=== PATIENT | male | born 1990 | race Hispanic/Latino ===

== ENCOUNTER 2018-05-27 21:08 | Emergency (ER) | payer OTHER ==
[2018-05-27 22:00] LABS: RAPID GROUP A STREP NEGATIVE (NEGATIVE)
== END 2018-05-27 22:59 | disposition home or self-care (01) ==
LOC: EDH 21:08
DX: J11.1 Influenza due to unidentified influenza virus with other respiratory manifestations (principal); Z98.890 Other specified postprocedural states; Z87.891 Personal history of nicotine dependence
CPT/HCPCS: 87804; 87880